=== PATIENT | female | born 1985 | race Asian ===

== ENCOUNTER 2017-05-26 00:15 | Inpatient (IN) | payer SELFPAY ==
[~2017-05-26] VITALS: Ht 169 cm; Wt 74.8 kg
[2017-05-26 01:08] LABS: BASOPHILS # (AUTO) 0.1 K/uL (0.00-0.22); BASOPHILS % (AUTO) 1.3 % (0.0-2.0); EOSINOPHILS # (AUTO) 0.1 K/uL (0-0.4); HEMOGLOBIN 12.8 g/dL (12.0-16.0); LYMPHOCYTES # (AUTO) 1.8 K/uL (2.5-16.5); LYMPHOCYTES % (AUTO) 18.1 % (20.5-51.1); MEAN CORPUSCULAR HEMOGLOBIN 30 pg (27-31); MEAN CORPUSCULAR HGB CONC 33 g/dL (33-37); MEAN CORPUSCULAR VOLUME 91 fL (80-94); MONOCYTES # (AUTO) 0.5 K/uL (0.8-1.0); MONOCYTES % (AUTO) 5.4 % (1.7-9.3); NEUTROPHILS # (AUTO) 7.6 K/uL (1.8-7.7); NEUTROPHILS % (AUTO) 74.2 % (42.2-75.2); PLATELET COUNT (AUTO) 219 K/uL (140-450); RED BLOOD CELL COUNT(AUTO) 4.27 MIL/uL (4.20-5.40); RED CELL DISTRIBUTION WIDTH 14.2 % (11.6-13.7); WHITE BLOOD COUNT (AUTO) 10.1 K/uL (4.8-10.8)
[2017-05-26 01:31] LABS: ALBUMIN 2.8 g/dL (3.4-5.0); ANION GAP 14.6 (8-16); CARBON DIOXIDE 22.1 mmol/L (21-32); CREATININE 0.7 mg/dL (0.6-1.3); POTASSIUM 3.7 mmol/L (3.5-5.1); TOTAL BILIRUBIN 0.2 mg/dL (0.0-1.0)
[2017-05-26 01:33] LABS: APPEARANCE,URINE CLEAR (CLEAR); BILIRUBIN,URINE NEGATIVE (NEGATIVE); BLOOD, URINE NEGATIVE (NEGATIVE); COLOR,URINE YELLOW (YELLOW); LEUKOCYTE ESTERASE ,URINE 1+ (NEGATIVE); NITRITE, URINE NEGATIVE (NEGATIVE); UGLUCOSE NEGATIVE (NEGATIVE)
[2017-05-26 01:53] LABS: RBC,URINE 0-5 (RARE) /HPF (0-5); WBC,URINE 6-15 (FEW) /HPF (0-5)
[2017-05-26] MEDS ORDERED: LACTATED RINGERS 1,000 ML IV SCH (04:50)
[2017-05-26] MEDS ORDERED: IBUPROFEN 800 MG TAB PO PRN (04:50)
[2017-05-26] MEDS ORDERED: CITRIC ACID/SODIUM CITRATE 30 ML UDC PO ONE (04:55)
[2017-05-26] MEDS ORDERED: CITRIC ACID/SODIUM CITRATE 30 ML UDC ONE (05:43)
[2017-05-26] MEDS ORDERED: CLINDAMYCIN 900 MG/6 ML VIAL IV ONE (05:43)
[2017-05-26] MEDS ORDERED: ONDANSETRON 4 MG/2 ML VIAL IVP ONE (05:50)
[2017-05-26] MEDS ORDERED: BUPIVACAINE-MPF 0.75% 10 ML VIAL INJ ONE (05:50)
[2017-05-26] MEDS ORDERED: OXYTOCIN 10 UNITS/ML VIAL IM ONE (05:50)
[2017-05-26] MEDS ORDERED: ePHEDrine 50 MG/ML VIAL IV ONE (05:50)
[2017-05-26] MEDS ORDERED: OXYTOCIN 10 UNITS/ML VIAL ONE (05:54)
[2017-05-26] MEDS ORDERED: MISOPROSTOL 200 MCG TAB ONE (05:54)
[2017-05-26] MEDS ORDERED: TRIAMCINOLONE 10 MG/ML 5ML VIAL ONE (05:54)
[2017-05-26] MEDS ORDERED: METHYLERGONOVINE 0.2 MG/ML AMP ONE (05:55)
[2017-05-26] MEDS ORDERED: CLINDAMYCIN 900 MG in DEXTROSE 5% 100 ML IV SCH (06:00)
[2017-05-26] MEDS ORDERED: MIDAZOLAM 2 MG/2 ML VIAL ONE (06:09)
[2017-05-26] MEDS ORDERED: fentaNYL 0.05 MG/ML VIAL ONE (06:10)
[2017-05-26] MEDS ORDERED: KETAMINE 500 MG/5 ML VIAL ONE (06:10)
[2017-05-26] MEDS ORDERED: MORPHINE PRES FREE 10 MG/10 ML AMP IV ONE (06:10)
[2017-05-26] MEDS ORDERED: OXYTOCIN 10 UNITS in LACTATED RINGERS 1,000 ML IV SCH (06:49)
[2017-05-26] MEDS ORDERED: KETOROLAC 30 MG/ML VIAL IVP PRN (06:50)
[2017-05-26] MEDS ORDERED: SIMETHICONE 80 MG TAB.CHEW PO PRN (06:50)
[2017-05-26] MEDS ORDERED: HYDROcodone/APAP 5/325 MG 1 TAB TAB PO PRN (06:50)
[2017-05-26] MEDS ORDERED: METHYLERGONOVINE 0.2 MG/ML AMP IM PRN (06:50)
[2017-05-26] MEDS ORDERED: ONDANSETRON 4 MG/2 ML VIAL IVP PRN (06:50)
[2017-05-26] MEDS ORDERED: MEASLES, MUMPS, AND RUBELLA 1 VIAL SQVAC PRN (06:50)
[2017-05-26] MEDS ORDERED: diphenhydrAMINE 50 MG/ML VIAL IVP PRN (06:50)
[2017-05-26] MEDS ORDERED: TEMAZEPAM 15 MG CAP PO PRN (06:50)
[2017-05-26] MEDS ORDERED: TRIMETHOBENZAMIDE 200 MG/2 ML SYR IM PRN (06:50)
[2017-05-26] MEDS: OXYTOCIN 20 UNITS in LACTATED RINGERS 1,000 ML IV SCH ×2 (08:37→16:11)
--- NOTE | 2017-05-26 08:53 | NUR ---
PATIENT HAS BEEN SCREENED AND CATEGORIZED LOW NUTRITION RISK. PATIENT WILL BE SEEN WITHIN 7 DAYS OF ADMISSION. 06/01/[address]
[2017-05-26] MEDS ORDERED: SODIUM PHOSPHATE 118 ML ENEM RC SCH (09:00)
[2017-05-26] MEDS ORDERED: INFLUENZA VIRUS VACCINE QUAD 0.5 ML SYR IMVAC SCH (18:50)
[2017-05-26] MEDS: DOCUSATE SOD/SENNA 50/8.6 MG 1 TAB PO SCH (21:00)
[2017-05-27] MEDS ORDERED: OXYTOCIN 20 UNITS/LR PREMIX 1,000 ML IV ONE (00:06)
[2017-05-27] MEDS: OXYTOCIN 20 UNITS in LACTATED RINGERS 1,000 ML IV SCH (00:16)
[2017-05-27] MEDS ORDERED: oxyCODONE/APAP 5/325 MG 1 TAB TAB PO PRN ×2 (01:00→08:15)
[2017-05-27 05:29] LABS: HEMATOCRIT 33.7 % (36-48); HEMOGLOBIN 10.9 g/dL (12.0-16.0); MEAN CORPUSCULAR HEMOGLOBIN 30 pg (27-31); MEAN CORPUSCULAR HGB CONC 32 g/dL (33-37); MEAN CORPUSCULAR VOLUME 92 fL (80-94); PLATELET COUNT (AUTO) 211 K/uL (140-450); RED BLOOD CELL COUNT(AUTO) 3.66 MIL/uL (4.20-5.40); RED CELL DISTRIBUTION WIDTH 14.2 % (11.6-13.7); WHITE BLOOD COUNT (AUTO) 20.3 K/uL (4.8-10.8)
[2017-05-27 06:41] LABS: LYMPHOCYTES % (MANUAL) 7 % (20-46); MONOCYTES % (MANUAL) 5 % (5-12)
[2017-05-27] MEDS: DOCUSATE SOD/SENNA 50/8.6 MG 1 TAB PO SCH (21:13)
[2017-05-28] MEDS: DOCUSATE SOD/SENNA 50/8.6 MG 1 TAB PO SCH (20:35)
[2017-05-29] MEDS ORDERED: IBUP-2218 PO (09:20)
== END 2017-05-29 14:03 | disposition home or self-care (01) | DRG 765 ==
LOC: MLD 00:15 → MFCC 08:12
PROVIDERS: ADMIT Obstetrics & Gynecology; ATTEND Obstetrics & Gynecology
PROC: 10D00Z1 Extraction of Products of Conception, Low, Open Approach (ICD-10-PCS; principal; 2017-05-26 06:00)
DX: O69.81X1 Labor and delivery complicated by cord around neck, without compression, fetus 1 (principal); O30.003 Twin pregnancy, unspecified number of placenta and unspecified number of amniotic sacs, third trimester; Z37.2 Twins, both liveborn; Z3A.37 37 weeks gestation of pregnancy
CPT/HCPCS: 36415; 80053; 81001; 85025; 86592; 86762; 86886; 86900; 86901; 87086; 87340; J2210; J2250; J2270; J2405; J2590; J3010; J3301; J3490; J7120